=== PATIENT | female | born 2000 | race Caucasian/White ===

== ENCOUNTER 2022-12-16 16:02 | Outpatient (CLI) | payer OTHER, SELFPAY ==
[2022-12-17 07:21] LABS: Kit Draw Collected
== END 2022-12-16 16:03 | disposition home or self-care (01) ==
LOC: ANHGOSHLAB 16:03
PROVIDERS: PCP Emergency Medicine; Visit Provider Emergency Medicine
DX: R20.2 Paresthesia of skin (principal); M79.601 Pain in right arm; M79.602 Pain in left arm
CPT/HCPCS: 36415

== ENCOUNTER → 2022-12-30 09:16 | Outpatient (CLI) | payer OTHER, SELFPAY ==
--- NOTE | ~2022-12-30 | XR_ITS ---
XR foot RT min 3V DATE: 12/30/2022 09:29 INDICATION: Stress fracture TECHNIQUE: 4 views of right foot COMPARISON: None FINDINGS: There is an approximately 6 mm length of mild periosteal reaction along the medial distal t hird metatarsal shaft, consistent with nondisplaced stress fracture. No other fracture or dislocation is detected. Joint spaces are preserved. No calcaneal enthesopathy. IMPRESSION: Stress fracture, distal third metatarsal shaft Reviewed, dictated and finalized at location L.
== END ==
PROVIDERS: PCP Emergency Medicine; Visit Provider Emergency Medicine
DX: M84.374A Stress fracture, right foot, initial encounter for fracture (principal); X58.XXXA Exposure to other specified factors, initial encounter
CPT/HCPCS: 73630